=== PATIENT | female | born 1995 | race Caucasian/White ===

== ENCOUNTER 2020-07-08 07:29 | Day surgery (SDC) | payer OTHER ==
[~2020-07-08] VITALS: Ht 154.9 cm; Wt 48.9 kg
[~2020-07-08 07:29] MED LIST: AMPICILLIN SOD/SULBACTAM SOD 3 GM in D5W MINI-BAG PLUS 100 ML IV ONE; LIDOCAINE 1% MDV 20ML VIAL SQ PRN; LR 1,000 ML IV ONE; SUBO4MIS SL; SUBO8MIS SL; dexameTHASONE 4 MG/ML 1ML VIAL (J1100 PER 1MG) IV ONE
[2020-07-08] MEDS ORDERED: propofoL 200 MG/20 ML VIAL As Ordered ONE (08:07)
[2020-07-08] MEDS ORDERED: fentaNYL 100 MCG/2 ML INJECTION (J3010) As Ordered ONE (08:07)
[2020-07-08] MEDS ORDERED: MIDAZOLAM INJ 2MG/2ML VIAL (J2250 PER 1MG) As Ordered ONE (08:07)
[2020-07-08] MEDS ORDERED: ROCURONIUM BROMIDE 50 MG/5 ML VIAL As Ordered ONE (08:08)
[2020-07-08] MEDS ORDERED: ONDANSETRON 4MG/2ML VIAL As Ordered ONE (08:08)
[2020-07-08] MEDS ORDERED: LIDOCAINE 2% 100MG/5ML SDV (FOR ANES.) As Ordered ONE (08:11)
[2020-07-08] MEDS ORDERED: LIDOCAINE 2% W/ EPINEPHRINE 1.7 ML DENTAL INJ As Ordered ONE (09:30)
[2020-07-08] MEDS ORDERED: OXYMETAZOLINE 0.05% NASAL SPRAY (AFRIN) As Ordered ONE (09:32)
[2020-07-08] MEDS ORDERED: dexameTHASONE 4 MG/ML 1ML VIAL (J1100 PER 1MG) As Ordered ONE (10:11)
[2020-07-08] MEDS ORDERED: GLYCOPYRROLATE INJ 0.2 MG/ML 2 ML VIAL As Ordered ONE ×2 (10:38→10:39)
[2020-07-08] MEDS ORDERED: NEOSTIGMINE 10MG/10ML VIAL (J2710 PER 0.5MG) As Ordered ONE (10:39)
[2020-07-08] MEDS ORDERED: fentaNYL 100 MCG/2 ML INJECTION (J3010) IV PRN (11:30)
[2020-07-08] MEDS ORDERED: ONDANSETRON 4MG/2ML VIAL IV PRN (11:30)
[2020-07-08] MEDS ORDERED: oxyCODONE 5MG TAB PO PRN (11:30)
[2020-07-08] MEDS ORDERED: LR 1,000 ML IV SCH (11:30)
--- NOTE | 2020-07-08 12:34 | RO ---
OPERATIVE NOTE DATE OF OPERATION: 07/08/2020 SURGEON: Hi Timmons DMD, MD PREOPERATIVE DIAGNOSES: 1. Severe dental anxiety, past history of opioid abuse. 2. Hopeless remaining dentition including teeth #2, 3, 4, 5, 6, 7, 8, 9, 10, 11, 12, 13, 14, 15, 18, 19, 20, 21, 22, 23, 24, 25, 26, 27, 28 and 29 . POSTOPERATIVE DIAGNOSIS: Status post: 1. Severe dental anxiety, history of opioid abuse. 2. Hopeless and carious remaining dentition including teeth #2, 3, 4, 5, 6, 7, 8, 9, 10, 11, 12, 13, 14, 15, 18, 19, 20, 21, 22, 23, 24, 25, 26, 27, 28 and 29. PROCEDURE PERFORMED: Extraction of all remaining teeth. ANESTHESIA USED: General endotracheal anesthesia via nasal LILIAN. SPECIMEN: Teeth for gross only. INDICATIONS FOR SURGERY: Kristine is a pleasant 24-year-old female who was referred to my office for evaluation for extraction of all remaining teeth. Clinical examination reveals she does have grossly decayed remaining dentition as well as impacted teeth #17 and 32. She does want to have all her erupted teeth removed. She made it clear that she does not want to have her impacted wisdom teeth removed. I did advise against that as I think these teeth will erupt in the next couple of years. However, she does not want them removed. Options to the patient were given including IV conscious sedation in the office versus general anesthesia in OR setting and due to her severe anxiety she elected to have general anesthesia in operating room setting. All the risks, benefits and alternatives were explained to the patient. Complete history and physical was performed and informed consent was signed and in the patient's chart. DESCRIPTION OF PROCEDURE: The patient presented to preop holding area, any last minute questions were addressed. She was taken back to the operating room. She was laid supine on the operating room table. Ulnar nerve protectors were placed, noninvasive cardiac monitors were applied. At that point the patient underwent general anesthesia and was intubated with nasal LILIAN. She was then prepped and draped in usual sterile fashion. Time out procedure was performed to identify the procedure, patient and any other precautions. She was given antibiotics and steroids preoperatively in the IV. At this point moist throat pack was inserted into the patient's oropharynx followed by administration of 8 carpules of 2% Lidocaine with 1:100,000 Epinephrine as local infiltrations and blocks. A full thickness flap was released, sites #2, 3, 4, 5, 6, 11, 12, 13,14 and 15 as well as 18, 19, 20, 21, 22, 27, 28, 29. A small buccal trough was removed with Surgitome and then the teeth were luxated and delivered with ease without any incident. All the sockets were curetted and irrigated, no sinus exposure was noted. Flaps were closed with 3-0 chromic sutures. Routine forceps extraction of teeth #7, 8, 9, 10, 23, 24, 25, 26 was performed. All sockets were curetted and irrigated and papillae were reapproximated. At this point, once all the teeth were removed, the oral cavity was irrigated and suctioned, the throat pack was removed. The patient was awakened from general anesthesia and taken back to the PACU. ESTIMATED BLOOD LOSS: 10 mL. DRAINS: No drains placed. COMPLICATIONS: None to be mentioned at the time of surgery.
== END 2020-07-08 12:15 | disposition home or self-care (01) ==
LOC: M SDC 07:29
PROVIDERS: ATTEND Dentist
DX: K02.9 Dental caries, unspecified (principal); F17.210 Nicotine dependence, cigarettes, uncomplicated; Z79.891 Long term (current) use of opiate analgesic
CPT/HCPCS: 81025; 88300; D7210; D9223; J1100; J2250; J2405; J2710; J3010